=== PATIENT | male | born 1990 | race African-American/Black ===

== ENCOUNTER 2024-02-23 11:20 | Emergency (ER) | payer OTHER, SELFPAY ==
[2024-02-23 11:43] VITALS: BP 150/80; PULSE 77; RESP 15; TEMP 36.5; O2SAT 98
[2024-02-23 13:00] VITALS: BP 129/94; PULSE 72; RESP 18; O2SAT 100
--- NOTE | 2024-02-23 13:54 | PC.NURSE ---
This RN entered room to apply neopsorin and a bandage to the wound on the left buttock, pt declined, states I can put it on myself. This RN handed the neosporin to the pt. The patient then demanded to not only have a work note, but to have job restrictions placed on his work note. This RN attempted to discuss EDP verbal work release, return date, and no restrictions and pt became visibly agitated and raised voice to this RN. States There is no reason you cant give me a work note with restrictions. You dont know the pain I am in, neither does the doctor, he didnt even ask what I do for a living. This RN attempted to deescalate pt and discussed previous imaging done at another hospital and results/restrictions suggested and pt began to get verbally aggressive. Pt demanding to speak with EDP. Pt shaking. Pt pointing finger and escalating. This RN reassured patient the doctor can come back in and discuss his POC with the patient. ED Charge Raad made aware of pt behavior and EDP Dr Aden made aware.
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
--- NOTE | 2024-02-23 14:13 | PC.NURSE ---
Dr Aden at bedside at this time to discuss plan and discharge w/ pt. ED security notified due to pts aggressive behaviors and verbal escalation.
== END 2024-02-23 14:19 | disposition home or self-care (01) ==
PROVIDERS: Emergency Provider Family Medicine; Referring Provider Family Medicine
DX: R07.89 Other chest pain (principal); S30.0XXA Contusion of lower back and pelvis, initial encounter; V47.5XXA Car driver injured in collision with fixed or stationary object in traffic accident, initial encounter
CPT/HCPCS: 99283